=== PATIENT | male | born 1950 | race Caucasian/White ===

== ENCOUNTER → 2024-07-13 | Outpatient (CLI) | payer MEDICARE, BC ==
[2024-07-13 15:02] LABS: HEMATOCRIT 53.9 % (42.0-52.0); HEMOGLOBIN 17.6 g/dL (13.5-18.0)
== END ==
LOC: LAB 14:45
PROVIDERS: Nurse Practitioner
DX: C88.0 Waldenstrom macroglobulinemia (principal)